=== PATIENT | male | born 2000 | race Caucasian/White ===

== ENCOUNTER 2022-08-27 16:17 | Outpatient (CLI) | payer OTHER, SELFPAY ==
--- NOTE | 2022-08-27 | DI.RAD_ITS ---
Exam(s) XR ANKLE RT COMPLETE EXAM: XR ANKLE RT COMPLETE CLINICAL HISTORY: RT ANKLE PAIN, M25.571, SPRAINED ANKLE FEW DAYS AGO, HX FX CHILDHOOD. TECHNIQUE: 2D digital imaging was performed. COMPARISON: No exams were available for comparison FINDINGS: 3 views Mild soft tissue swelling but no fracture nor widening of the ankle mortise. Talar dome unremarkable . No osseous tarsal coalition. Bone density normal. No joint space narrowing in the ankle and subt alar joints IMPRESSION: No fractures evident. Mild soft tissue swelling. DATA REPOSITORY: RADIATION DOSE DELIVERED:
== END 2022-08-27 16:37 ==
PROVIDERS: Visit Provider Physician Assistant Medical
DX: M25.571 Pain in right ankle and joints of right foot (principal); W19.XXXA Unspecified fall, initial encounter
CPT/HCPCS: 73610